=== PATIENT | male | born 1950 | race Caucasian/White ===

== ENCOUNTER 2020-03-23 12:32 | Outpatient (REF) | payer MEDICARE, OTHER, SELFPAY | END 2020-03-23 12:33 | disposition home or self-care (01) | LOC: HO.WFDLDS 12:32 | PROVIDERS: Visit Provider Internal Medicine | DX: Z20.828 Contact with and (suspected) exposure to other viral communicable diseases (principal) | CPT/HCPCS: 87635 ==

== ENCOUNTER 2020-04-11 12:21 | Outpatient (REF) | payer MEDICARE, OTHER, SELFPAY | END 2020-04-11 12:22 | disposition home or self-care (01) | LOC: HO.WFDLDS 12:21 | PROVIDERS: Visit Provider Internal Medicine | DX: Z20.828 Contact with and (suspected) exposure to other viral communicable diseases (principal) | CPT/HCPCS: C9803; U0003 ==

== ENCOUNTER 2022-05-07 07:12 | Day surgery (SDC) | payer MEDICARE, OTHER, SELFPAY ==
--- NOTE | 2022-05-06 12:09 | P.CONAN_ITS ---
Documented by User: Sunshine Singh NP 05/06/22 12:09 HPI - Anesthesia Eval Consult details Narrative: 72yo M for Colonoscopy [facility] Past Medical History Medical History (Updated 05/06/22 @ 11:45 by Radha Mancilla RN) Gout HTN (hypertension) Hyperlipemia Surgical History Surgical History (Updated 05/06/22 @ 11:45 by Radha Mancilla RN) H/O colonoscopy Social History Social History Patient Tobacco Use Status: Former Tobacco user Quit Date: 12 years ago Use of substances other than those prescribed or required for medical reasons: Yes Substance Use Frequency: Monthly Are you DNR?: No Advance Directives: No Advance Directives Information Provided: Yes Meds Allergies Allergy/AdvReac Type Severity Reaction Status Date / Time Penicillins [PCN] Allergy Unknown Verified 05/06/22 11:45 Home Medications Medication Instructions Recorded Confirmed Last Taken Type allopurinol 100 mg tablet 1 tab PO DAILY 05/06/22 05/06/22 Unknown History atenolol 50 mg tablet 1.5 tab PO DAILY 05/06/22 05/06/22 Unknown History atorvastatin 40 mg tablet 1 tab PO DAILY 05/06/22 05/06/22 Unknown History furosemide 20 mg tablet 2 tab PO DAILY 05/06/22 05/06/22 Unknown History Exam Exam Date and Time: May 06, [id number] Assessment and Plan Assessment Anesthesia Assessment: Chart Reviewed Documented by User: Lele Rojas MD 05/07/22 16:03 [facility] Past Medical History Medical History (Updated 05/06/22 @ 11:45 by Radha Mancilla RN) Gout HTN (hypertension) Hyperlipemia Functional capacity: independent ambulation Family History Family history of problems with anesthesia: No Surgical History Surgical History (Updated 05/06/22 @ 11:45 by Radha Mancilla RN) H/O colonoscopy History of Problems with Anesthesia: No Social History Social History Patient Tobacco Use Status: Former Tobacco user Quit Date: 12 years ago Use of substances other than those prescribed or required for medical reasons: Yes Substance Use Frequency: Monthly Are you DNR?: No Advance Directives: No Advance Directives Information Provided: Yes Meds Allergies Allergy/AdvReac Type Severity Reaction Status Date / Time Penicillins [PCN] Allergy Unknown Verified 05/06/22 11:45 Home Medications Medication Instructions Recorded Confirmed Last Taken Type allopurinol 100 mg tablet 1 tab PO DAILY 05/06/22 05/06/22 Unknown History atenolol 50 mg tablet 1.5 tab PO DAILY 05/06/22 05/06/22 Unknown History atorvastatin 40 mg tablet 1 tab PO DAILY 05/06/22 05/06/22 Unknown History furosemide 20 mg tablet 2 tab PO DAILY 05/06/22 05/06/22 Unknown History Exam Airway Mallampati Class: IV TM Dist: >3cm Neck ROM: Full Partial: Upper Loose/Missing/Broken Teeth: Yes Heart: S1,S2 Lungs: b/l breath sounds Assessment and Plan Assessment Anesthesia Assessment: Anesthesia Plan Discussed Final Anesthetic Review Family History of Problems with Anesthesia: No History of Problems with Anesthesia: No NPO: Yes ASA Class: III Final Preanesthetic Review: Meds/Allgs Chart Reviewed, Consent Obtained/Reviewed and Anes Risks/Benef Reviewed Patient Risk: Intermediate Procedure Risk: Intermediate Anesthetic Plan Anesthetic Plan: MAC: Disposition: Standard PACU
[2022-05-07 07:57] VITALS: BP 136/78; PULSE 80; RESP 19; TEMP 36.1; O2SAT 95; BMI 37.5
[2022-05-07] MEDS: Lactated Ringers 1,000 ML 100 ML IVCONT (08:37)
[2022-05-07 09:32] VITALS: BP 96/63; PULSE 83; RESP 16; TEMP 36.4; O2SAT 95
--- NOTE | 2022-05-07 09:33 | PM.OP ---
Brief Operative Note Date of Service: 05/07/22 Pre-op diagnosis: Screening Post-op diagnosis: other (Polyps) Procedure: Colonoscopy to the cecum with bx/removal of cecal polyps. Surgeon: Andi Salgado Anesthesia: MAC Was an Change Control Specialist used for this Procedure?: No Estimated blood loss (mL): 2.0 Pathology: other (A. Cecal polyps) Condition: stable Disposition: PACU
[2022-05-07 09:47] VITALS: BP 118/48; PULSE 75; RESP 16; TEMP 36.7; O2SAT 99
--- NOTE | 2022-05-07 10:25 | OP_ITS ---
SURGEON: Andi Salgado MD INDICATIONS: The patient presents for evaluation of personal history of tubular adenoma of the colon and need for colorectal cancer screening. Full consent was obtained from him for this, including risks of bleeding and perforation. PREOPERATIVE DIAGNOSIS: POSTOPERATIVE DIAGNOSIS: Colorectal cancer screening and personal history of tubular adenoma of the colon, small colon polyps, diverticulosis, and internal hemorrhoids. PROCEDURE PERFORMED: Colonoscopy to cecum with biopsy removal of polyps. ESTIMATED BLOOD LOSS: COMPLICATIONS: ANESTHESIA: Monitored anesthesia care. ASSISTANTS: SPECIMENS: PREOPERATIVE DIAGNOSES: Colorectal cancer screening and personal history of tubular adenoma of the colon. DESCRIPTION OF PROCEDURE: The patient was placed in the left lateral decubitus position. The digital rectal exam revealed no abnormalities. The Olympus video pediatric colonoscope was entered into the rectum and advanced easily to the cecum. Once in the cecum, I did identify cecal pouch with appendiceal orifice and a normal-appearing ileocecal valve. There was transillumination of light deep in the right lower quadrant. The entire cecum was well visualized. In the cecum, there were 2 approximately 3 mm polyps, both of which were biopsied and completely removed with cold biopsy forceps. The remainder of the cecum appeared normal. The scope was then slowly withdrawn assessing all mucosal surfaces carefully. Preparation was excellent. I did not visualize any other polyps, colitis, or angiodysplasia. There was a moderate amount of sigmoid diverticulosis. In the rectum, scope was retroflexed visualizing internal hemorrhoids, but no other pathology. The rectal mucosa appeared normal. The scope was straightened and withdrawn from the patient. He tolerated the procedure well and was returned to recovery area in stable condition. IMPRESSION: 1. Colon polyps. 2. Diverticulosis. 3. Internal hemorrhoids. PLAN: The results of biopsies will be checked. I would recommend a repeat colonoscopy in 5 years. He was advised not to use any aspirin and NSAIDs for 1 week. MD HORTENSIA Adam/RANDOLPHL / [id number]
== END 2022-05-07 10:36 | disposition home or self-care (01) ==
PROVIDERS: PCP Family Medicine; Visit Provider Internal Medicine
PROC: 0DJD8ZZ Inspection of Lower Intestinal Tract, Via Natural or Artificial Opening Endoscopic (ICD-10-PCS; CPT 45378; principal; 2022-05-07 08:30)
DX: Z12.11 Encounter for screening for malignant neoplasm of colon (principal); Z86.010 Personal history of colon polyps; D12.0 Benign neoplasm of cecum; K57.30 Diverticulosis of large intestine without perforation or abscess without bleeding; K64.8 Other hemorrhoids; I10 Essential (primary) hypertension; E78.5 Hyperlipidemia, unspecified; M10.9 Gout, unspecified; Z79.82 Long term (current) use of aspirin; Z79.899 Other long term (current) drug therapy; Z87.891 Personal history of nicotine dependence
CPT/HCPCS: 45380; 88305